=== PATIENT | male | born 1935 | race Two or more races ===

== ENCOUNTER 2017-07-21 21:45 | Inpatient (IN) | payer MEDICARE, MEDICAID ==
[~2017-07-21] VITALS: Ht 160 cm; Wt 82.0 kg
[~2017-07-21 21:45] MED LIST: AMLO5CAP38; ASPI81CH43; KLOR CON; METOPROLOL; PRAVASTATIN
[2017-07-21 22:41] LABS: Basophils # (auto) 0 uL; Basophils % (auto) 0.3 % (0.0-2.0); Eosinophils # (auto) 0 uL; Eosinophils % (auto) 0.2 % (0.0-7.0); Hematocrit 45.3 % (41.0-53.0); Lymphocytes # (auto) 1.4 uL; Lymphocytes % (auto) 13.3 % (10.0-50.0); Mean Corpuscular Hemoglobin 31.9 pg (28.0-32.0); Mean Corpuscular Hgb Conc. 33.1 g/dL (32.0-36.0); Mean Corpuscular Volume 96.5 fL (80.0-100.0); Monocytes # (auto) 0.8 uL; Monocytes % (auto) 7.5 % (0.0-12.0); Neutrophils # (auto) 8.4 uL; Neutrophils % (auto) 78.7 % (37.0-80.0); Nucleated Red Blood Cells % 0.1 %; Platelet Count (auto) 201 10^3/uL (140-450); Red Blood Cells 4.69 10^6/uL (4.5-5.90); Red Cell Distribution Width 14.4 % (11.8-14.3); White Blood Cell 10.6 10^3/uL (4.4-10.8)
[2017-07-21 23:06] LABS: Lactic Acid w/Reflex 2.8 mmol/L (0.4-2.0)
[2017-07-21 23:10] LABS: Albumin 3.4 g/dL (3.4-5.0); Calcium 8.1 mg/dL (8.5-10.1)
[2017-07-21 23:13] LABS: BUN/Creatinine Ratio 14.4
[2017-07-21 23:17] LABS: Bilirubin, Total 0.6 mg/dL (0.2-1.0); Total Protein 7.3 g/dL (6.4-8.2)
[2017-07-21 23:18] LABS: INR 2.73 (0.9-1.15); Partial Thromboplastin Time 31.5 sec (22.64-33.71); Prothrombin Time 30.1 sec (9.37-12.3)
[2017-07-21 23:27] LABS: Potassium 7.1 mmol/L (3.5-5.1)
[2017-07-21] MEDS ORDERED: DEXTROSE (50%) 50ML SYRG IV ONE (23:45)
[2017-07-21] MEDS ORDERED: InsuLIN REG 1unit/0.01ml Soln (100units/ml) IV ONE (23:45)
[2017-07-21] MEDS ORDERED: SODIUM POLYSTYRENE SULF 15GM/60ML SUSP PO ONE (23:45)
[2017-07-21] MEDS ORDERED: CALCIUM GLUC 4.65meq/50ml D5AE 50 ML IV ONE (23:45)
[2017-07-21] MEDS ORDERED: SODIUM BICARBONATE 8.4 % INJ 50ML VIAL IV ONE (23:45)
[2017-07-22] MEDS ORDERED: FUROSEMIDE 20 MG/2 ML VIAL IV ONE (02:00)
[2017-07-22 06:12] LABS: Basophils # (auto) 0 uL; Basophils % (auto) 0.3 % (0.0-2.0); Eosinophils # (auto) 0 uL; Eosinophils % (auto) 0.1 % (0.0-7.0); Hematocrit 42.1 % (41.0-53.0); Hemoglobin 14.1 g/dL (13.5-17.5); Lymphocytes # (auto) 1.8 uL; Lymphocytes % (auto) 18.3 % (10.0-50.0); Mean Corpuscular Hgb Conc. 33.6 g/dL (32.0-36.0); Mean Corpuscular Volume 95.3 fL (80.0-100.0); Monocytes # (auto) 0.9 uL; Monocytes % (auto) 9.7 % (0.0-12.0); Neutrophils % (auto) 71.6 % (37.0-80.0); Nucleated Red Blood Cells % 0.1 %; Platelet Count (auto) 191 10^3/uL (140-450); Red Blood Cells 4.42 10^6/uL (4.5-5.90); Red Cell Distribution Width 14.4 % (11.8-14.3); White Blood Cell 9.8 10^3/uL (4.4-10.8)
[2017-07-22 06:39] LABS: Albumin 3.6 g/dL (3.4-5.0); BUN/Creatinine Ratio 14.5; Bilirubin, Total 0.6 mg/dL (0.2-1.0); Calcium 8.7 mg/dL (8.5-10.1); Potassium 4.3 mmol/L (3.5-5.1); Total Protein 7.1 g/dL (6.4-8.2)
[2017-07-22] MEDS ORDERED: ONDANSETRON HCL 4 MG/2 ML VIAL IV PRN (07:00)
[2017-07-22] MEDS: FUROSEMIDE 40 MG/4 ML VIAL IV SCH (10:00)
[2017-07-22] MEDS ORDERED: BUMETANIDE 1 MG TAB PO SCH (17:30)
[2017-07-22 17:31] VITALS: BP 143/82
[2017-07-22 18:13] LABS: INR 2.46 (0.9-1.15); Partial Thromboplastin Time 32.2 sec (22.64-33.71); Prothrombin Time 27.1 sec (9.37-12.3)
[2017-07-22] MEDS ORDERED: POTASSIUM CHLORIDE 8 MEQ TAB PO SCH (18:30)
[2017-07-22] MEDS ORDERED: WARFARIN SODIUM 2 MG TAB PO ONE (18:45)
[2017-07-22] MEDS: METOPROLOL TARTRATE 50 MG TAB PO SCH (21:07)
[2017-07-22 22:00] VITALS: BP 129/80
[2017-07-23 05:00] VITALS: BP 130/77
[2017-07-23 06:14] LABS: Basophils # (auto) 0 uL; Basophils % (auto) 0.5 % (0.0-2.0); Eosinophils # (auto) 0.4 uL; Eosinophils % (auto) 5.4 % (0.0-7.0); Hemoglobin 12.8 g/dL (13.5-17.5); Lymphocytes % (auto) 25.8 % (10.0-50.0); Mean Corpuscular Hemoglobin 32.1 pg (28.0-32.0); Mean Corpuscular Hgb Conc. 33.7 g/dL (32.0-36.0); Mean Corpuscular Volume 95.4 fL (80.0-100.0); Monocytes # (auto) 0.9 uL; Monocytes % (auto) 10.9 % (0.0-12.0); Neutrophils # (auto) 4.6 uL; Neutrophils % (auto) 57.4 % (37.0-80.0); Nucleated Red Blood Cells % 0.1 %; Platelet Count (auto) 160 10^3/uL (140-450); Red Blood Cells 3.99 10^6/uL (4.5-5.90); Red Cell Distribution Width 14.1 % (11.8-14.3); White Blood Cell 7.9 10^3/uL (4.4-10.8)
[2017-07-23 06:27] LABS: INR 2.09 (0.9-1.15); Partial Thromboplastin Time 32.7 sec (22.64-33.71)
[2017-07-23 06:35] LABS: BUN/Creatinine Ratio 18.3; Calcium 7.7 mg/dL (8.5-10.1); Phosphorus 4.2 mg/dL (2.5-4.90); Potassium 3.2 mmol/L (3.5-5.1); Uric Acid 10.2 mg/dL (3.5-7.2)
[2017-07-23] MEDS: LEVOTHYROXINE SODIUM 50 MCG TAB PO SCH (07:04)
[2017-07-23 09:00] VITALS: BP 136/81
[2017-07-23] MEDS: METOPROLOL TARTRATE 50 MG TAB PO SCH ×2 (09:59→23:21)
[2017-07-23] MEDS: ENTRESTO PO SCH ×2 (09:59→22:00)
[2017-07-23] MEDS ORDERED: BUMETANIDE 1 MG TAB PO SCH (10:00)
[2017-07-23] MEDS ORDERED: WARFARIN SODIUM 2 MG TAB PO SCH ×2 (10:00→17:00)
[2017-07-23] MEDS ORDERED: POTASSIUM CHL 20 Meq TABLET PO ONE (11:00)
[2017-07-23 13:00] VITALS: BP 129/71
[2017-07-23 13:28] LABS: Urine Bacteria FEW /hpf (None Seen); Urine Blood Negative /uL (Negative); Urine Mucus FEW (None Seen); Urine Specific Gravity 1.021 (1.001-1.035); Urine WBC 2 /hpf (0 - 3)
[2017-07-23 13:37] LABS: Protein, Urine 34.7 mg/dL (0.0-11.9)
[2017-07-23] MEDS ORDERED: PROMETHAZINE W/CODEINE 5 ML ORAL SYRUP PO PRN (13:45)
[2017-07-23 17:00] VITALS: BP 138/91
[2017-07-23 22:10] VITALS: BP 135/86
[2017-07-24 05:23] VITALS: BP 142/83
[2017-07-24 07:50] LABS: INR 1.9 (0.9-1.15); Partial Thromboplastin Time 31.6 sec (22.64-33.71); Prothrombin Time 20.8 sec (9.37-12.3)
[2017-07-24] MEDS: LEVOTHYROXINE SODIUM 50 MCG TAB PO SCH (08:00)
[2017-07-24 08:19] VITALS: BP 143/74
[2017-07-24] MEDS: ENTRESTO PO SCH (10:00)
[2017-07-24] MEDS ORDERED: POTASSIUM CHL 20 Meq TABLET PO SCH (10:00)
[2017-07-24] MEDS: FUROSEMIDE 40 MG/4 ML VIAL IV SCH (11:26)
[2017-07-24] MEDS: METOPROLOL TARTRATE 50 MG TAB PO SCH (11:27)
[2017-07-24 11:54] VITALS: BP 156/80
[2017-07-24 15:28] VITALS: BP 143/74
[2017-07-24 16:57] VITALS: BP 141/84
== END 2017-07-24 17:15 | disposition home or self-care (01) | DRG 682 ==
LOC: EDBD 21:45 → ER 21:58 → EDUNIT# 21:59 → TELE 21:59 → TELE-WESTW 07-22 13:13 → TELE-CENTR 07-22 16:44
PROVIDERS: ADMIT Nurse Practitioner Family; ATTEND Internal Medicine Pulmonary Disease
DX: N17.0 Acute kidney failure with tubular necrosis (principal); I50.43 Acute on chronic combined systolic (congestive) and diastolic (congestive) heart failure; E11.22 Type 2 diabetes mellitus with diabetic chronic kidney disease; E87.1 Hypo-osmolality and hyponatremia; E87.5 Hyperkalemia; I13.0 Hypertensive heart and chronic kidney disease with heart failure and stage 1 through stage 4 chronic kidney disease, or unspecified chronic kidney disease; E03.9 Hypothyroidism, unspecified; E66.9 Obesity, unspecified; E78.00 Pure hypercholesterolemia, unspecified; I48.2 Chronic atrial fibrillation; J06.9 Acute upper respiratory infection, unspecified; N05.9 Unspecified nephritic syndrome with unspecified morphologic changes; N18.3 Chronic kidney disease, stage 3 (moderate); N28.1 Cyst of kidney, acquired; Z95.810 Presence of automatic (implantable) cardiac defibrillator; Z79.899 Other long term (current) drug therapy; Z79.01 Long term (current) use of anticoagulants; Z68.32 Body mass index [BMI] 32.0-32.9, adult
CPT/HCPCS: 36415; 36600; 71010; 74176; 76775; 80048; 80053; 81001; 82140; 82570; 82805; 82962; 83036; 83605; 83880; 84100; 84156; 84300; 84443; 84484; 84550; 85025; 85610; 85730; 87040; 93005; 93306; 96365; 96375; J0610; J1815